=== PATIENT | female | born 1965 | race Two or more races ===

== ENCOUNTER 2016-10-08 15:13 | Emergency (ER) | payer OTHER ==
[~2016-10-08] VITALS: Ht 165.1 cm; Wt 95.3 kg
[2016-10-08 15:35] VITALS: BP 127/62
[2016-10-08] MEDS ORDERED: ALBUTEROL SULF8.5 GM INH (15:59)
[2016-10-08] MEDS ORDERED: PROMETHAZINE-C118 M1 ORAL (15:59)
[2016-10-08] MEDS ORDERED: PREDNISONE20 MG ORAL (15:59)
--- NOTE | 2016-10-08 17:44 | Emergency Room Report ---
History of Present Illness General Chief Complaint: Chest Pain Source: Patient Present Illness HPI 51-year-old female presents ED complaining of bodyaches, cough and congestion x2 days. Notes dry cough. Runny nose. Denies any fevers or chills. Notes generalized bodyaches and headache. 8/10, dull, nonradiating. No aggravating or relieving factors. Denies ear ache or sore throat. Denies sick contacts recent travel. Denies any other associated symptoms Allergies: Coded Allergies: No Known Allergies (Unverified , 10/08/16) Patient History Past Medical History: HTN Past Surgical History: none Pertinent Family History: none Social History: Denies: alcohol use, drug use, smoking Now: No Immunizations: UTD Reviewed Nursing Documentation: PMH: Agreed, PSxH: Agreed Nursing Documentation-PMH Past Medical History: No History, Except For Hx Hypertension: Yes Review of Systems All Other Systems: negative except mentioned in HPI Physical Exam Vital Signs Date Time Temp Pulse Resp B/P Pulse Ox O2 Delivery O2 Flow Rate FiO2 10/08/16 15:20 99.7 108 14 138/82 97 Room Air Sp02 EP Interpretation: reviewed, normal General Appearance: no apparent distress, alert, GCS 15, non-toxic Head: normocephalic Eyes: bilateral eye PERRL, bilateral eye normal inspection ENT: hearing grossly normal, normal pharynx, no angioedema, normal voice Neck: normal inspection Respiratory: chest non-tender, lungs clear, normal breath sounds, speaking full sentences Cardiovascular #1: regular rate, rhythm, no edema Gastrointestinal: normal bowel sounds, non tender, soft, non-distended, no guarding, no rebound Rectal: deferred Genitourinary: no CVA tenderness Musculoskeletal: normal inspection Neurologic: alert, oriented x3, responsive, motor strength/tone normal, sensory intact, speech normal Psychiatric: normal inspection Skin: normal inspection Lymphatic: normal inspection Medical Decision Making Diagnostic Impression: Primary Impression: Bronchitis ER Course Hospital Course 51-year-old female presents to ED complaining of cough, runny nose with bodyaches Differential diagnoses include: URI, pharyngitis, otitis media, asthma Clinical course Patient placed on stretcher. After initial history, physical exam reveals a female in no acute distress. Bilateral TM unremarkable. No pharyngeal erythema. No tonsillar exudates. No lymphadenopathy. lungs clear. abdomen soft. Clinical findings consistent with bronchitis. Reassurance given. treatment is supportive therapy Diagnosis - bronchitis Stable and discharged home with Rx albuterol, prednisone, cough syrup. Instructed to followup with PMD. Return to ED if symptoms recur or worsen Last Vital Signs Date Time Temp Pulse Resp B/P Pulse Ox O2 Delivery O2 Flow Rate FiO2 10/08/16 16:07 100.4 82 19 133/61 98 Room Air Status: improved Disposition: HOME, SELF-CARE Condition: Stable Scripts Codeine/Promethazine Hcl* (PROMETHAZINE-CODEINE SYRUP*) 118 Ml Syrup 5 ML ORAL Q4H Y for For Cough for 7 Days, ML 0 Refills Prov: KAREN BLAKELY M.D. 10/08/16 Prednisone* (PREDNISONE*) 20 Mg Tablet 40 MG ORAL DAILY, #10 TAB Prov: KAREN BLAKELY M.D. 10/08/16 Albuterol Sulfate* (ALBUTEROL SULFATE MDI*) 8.5 Gm Hfa.aer.ad 2 PUFF INH Q4H Y for cough/wheezing, #1 EA 0 Refills Prov: KAREN BLAKELY M.D. 10/08/16 Referrals: [facility]ERR[facility] (PCP) Patient Instructions: Acute Bronchitis, [id number] KAREN BLAKELY M.D. Oct 08, 2016 17:43
== END 2016-10-08 16:07 | disposition home or self-care (01) ==
LOC: EMR 16:00
DX: J40 Bronchitis, not specified as acute or chronic (principal); I10 Essential (primary) hypertension
CPT/HCPCS: 99282